=== PATIENT | female | born 1965 | race Caucasian/White ===

== ENCOUNTER 2017-07-07 12:48 | Day surgery (SDC) | payer BC ==
[~2017-07-07] VITALS: Ht 165.1 cm; Wt 72.1 kg
[2017-07-07] MEDS ORDERED: PROZAC20 MG PO (13:46)
[2017-07-07] MEDS ORDERED: SOMA350 MG PO (13:46)
[2017-07-07] MEDS ORDERED: FUROSEMIDE40 MG PO (13:47)
[2017-07-07] MEDS ORDERED: NITROQUICK0.4 MG SL (13:47)
[2017-07-07] MEDS ORDERED: NEURONTIN 300300 MG PO (13:47)
[2017-07-07] MEDS ORDERED: ULTRAM50 MG PO (13:48)
[2017-07-07] MEDS ORDERED: KLONOPIN0.5 MG PO (13:49)
[2017-07-07] MEDS ORDERED: PRINIVIL20 MG PO (13:49)
[2017-07-07] MEDS ORDERED: MOBIC7.5 MG PO (13:49)
[2017-07-07] MEDS ORDERED: PLAQUENIL200 MG PO (13:50)
[2017-07-07] MEDS ORDERED: COREG25 MG PO (13:51)
[2017-07-07 14:12] LABS: ANION GAP 13.5 mmol/L (8-16); CALCIUM 8.6 mg/dL (8.5-10.1); CARBON DIOXIDE 27.6 mmol/L (21.0-32.0); POTASSIUM - SERUM 4.1 mmol/L (3.5-5.1)
[2017-07-07 14:15] VITALS: Ht 165.1 cm; Wt 72.1 kg
[2017-07-07 14:36] LABS: BASOPHILS 0.5 % (0-2); HEMATOCRIT 35.8 % (36.0-48.0); HEMOGLOBIN 12.2 g/dL (12-16); IMMATURE GRANULOCYTES 0.2 % (0-5); LYMPHOCYTES 29.2 % (15-50); MCHC 34.1 g/dL (31.0-37.0); MEAN PLATELET VOLUME 10.5 fL (7.4-10.4); MONOCYTES 6.1 % (2-11); PLATELET COUNT 202 10x3/uL (130-400); RBC 3.81 10x6/uL (4.00-5.40); RDW 13.2 % (11.5-14.5); WBC 6.6 10x3/uL (4.8-10.8)
--- NOTE | 2017-07-07 18:17 | NUR ---
1815 BACK FROM CYSTOSCOPY STONE REMOVAL AND STENT PLACEMENT. ALERT AND TALKATIVE. SOME PAIN NOTED 5 HAD DILAUDID PRIOR TO ROOM, NO NAUSEA.
--- NOTE | 2017-07-07 19:05 | NUR ---
1820 UP WITH ASSISTANCE UNABLE TO URINATE. ENCOURAGED FLUIDS AND IV OPEN.
--- NOTE | 2017-07-07 19:23 | NUR ---
1914 V/S TAKEN RESP EVEN AND NONLABORED. PAIN LEVEL RT URETER A 4 BUT SOME GROGGY. ASKING TO GO HOME BUT HAS NOT URINATED. DR. BAKER STATED DID NOT HAVE TO URINATE BEFORE DISCHARGE. IV DCD CATHETER INTACT. SCRIPT GIVEN AND DISCHARGE INSTRUCTIONS GIVEN. TOLD PATIENT A STRING ATTACHED TO VAGINA AREA AND NOT TO PULL IT OT. TOLD TO CALL OFFICE MONDAY FOR A TOME ON MONDAY TO GET STENT REMOVED. TOLD HER NO BATHS SHOWER ONLY. SCRIPT FOR FLOMAX AND NORCO GIVEN TOLD HER SIDE EFFECT OF NORCO IS CONSTIPATION AND THE FLOMAX WILL HELP WITH URINATION. 1924 DISCHARGED TO HOME WITH AUNT.
--- NOTE | 2017-07-08 09:57 | OP ---
PATIENT NAME: KASEY ERAZO MEDICAL RECORD: [id number] :65 LOCATION:D.OPS ADMISSION DATE: SURGEON: LILLIANA BAKER MD DATE OF OPERATION: 07/07/2017 SURGEON: Lilliana Baker MD ANESTHESIA: General anesthesia by Venancio Lockwood CRNA PREOPERATIVE DIAGNOSIS: Right proximal ureteral stone, 4 mm, with hydronephrosis. PROCEDURES: Urethral stricture dilation to 26-Norwegian, cystoscopy, right ureteroscopy and stone extraction, and right ureteral stent insertion of 6-Norwegian x 24 cm with string attached. FINDINGS: Urethral stricture. On cystoscopy, single ureteral orifices bilaterally. No bladder tumors. Radiodense right proximal ureteral 4-mm stone. SPECIMENS: Right ureteral stone, 4 mm. BLOOD LOSS: None. CLINICAL HISTORY: This is a 52-year-old female with a prior history of kidney stones. She also has lower back pain. She has been complaining of right-sided back pain for sometime. She had an MRI of the spine which showed some lumbar disc herniation at L4-L5 and L5-S1 without nerve compression. The MRI also showed a right proximal ureteral 4-mm stone causing right-sided hydronephrosis. I saw her in the office today and we will be proceeding with removal of the stone by ureteroscopy. She also did complain of difficulty voiding with hesitancy and slow urinary flow. She is status post hysterectomy many years ago for cervical dysplasia. 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 DESCRIPTION OF PROCEDURE: The patient was given induction of general anesthesia. She was placed in the dorsal lithotomy position and prepped and draped. We could not get the 20-Norwegian cystoscope into the patient due to urethral stricture. Therefore, sounds were used starting from about 14-Norwegian and going up to 26-Norwegian to dilate the urethra. The scope was then able to enter freely. The patient had some relatively stenotic ureteral orifices. However, no bladder tumors were seen. On fluoroscopy, we could identify the stone as the radiodensity in the proximal ureter around the transverse process of L2. I managed to get an open-ended ureteral catheter into the right ureteral orifice. We then placed a Sensor wire and the Sensor wire ran up to the stone, but it could not get past the stone. I then ran the open-ended ureteral catheter up to the stone. We removed the wire and performed a retrograde pyelogram. The flow of contrast past the stone with the pyelogram and the pressure from the ureteral catheter managed to dislodge the stone back into the kidney. Hydronephrosis was seen, but no other filling defects were seen. The Sensor wire was placed back up to the renal pelvis through the ureteral catheter. The ureteral catheter was then removed, leaving the wire in place. Over the wire, we inserted a 21-Norwegian x 4-cm ureteral dilation balloon. The ureteral orifice on the right side was dilated using 16 atmospheres of pressure for few seconds and then the balloon was deflated. A rigid ureteroscope was used and I got all the way into the renal pelvis and did not see the stone. The OPERATIVE REPORT [id number] KASEY ERAZO J area in the proximal ureter where the stone had been lodged was identified by some edema there. No ureteral tumors were seen. The rigid ureteroscope was removed. I then inserted a ureteral access sheath over the guidewire. Once this was in correct position, the stylet of the ureteral access sheath as well as the guidewire was removed. A flexible ureteroscope was then placed into the kidney, and starting from the upper pole rena and looking down, I could finally identify the stone. A 0-tip 4 wire basket was placed around the stone. The stone was too large to pass through the lumen of the ureteral access sheath. Therefore, the Sensor wire was placed through the lumen of the access sheath back into the kidney. We kept the wire in place while the ureteral access sheath, stone in the basket, and the ureteroscope were all removed as a unit. The stone was then sent to pathology as a dry specimen for stone identification. With the ureteroscope and ureteral access sheath removed, the Sensor wire was backloaded onto the cystoscope. Over the wire through the cystoscope, we inserted a 6-Norwegian x 24-cm ureteral stent. Once the stent was in correct position, the wire was entirely removed. The proximal end was seen to coil in the renal pelvis. The distal end was pushed into the bladder using a pusher. The bladder was emptied through the cystoscope sheath and then the scope was removed entirely. The string on the distal end of the stent was maintained. It was taped to the suprapubic area with a small piece of Tegaderm. The patient will be going home today with a prescription for Williams 5/325 times 30 tablets and tamsulosin 0.4 mg p.o. at bedtime times 30 tablets. She will come to my office next week, on Monday, to have the stent removed. TRANSINT:[id number] Voice Confirmation ID: [id number] DOCUMENT ID: [id number] LILLIANA BAKER MD at 0957 CC: [id number] DICTATION DATE: 07/07/171734 GRAPHIC ART DESIGNER: 07/07/17 184 [facility] 07/07/17 [facility] [address] [place] [address]
[2017-07-21 10:18] LABS: CALCULI - CA OXALATE DIHYDRATE 20 % (()); CALCULI - CA OXALATE MONOHYDR 70 % (()); CALCULI - COLOR Brown (()); CALCULI - SIZE 6x5x3 mm (())
== END 2017-07-07 19:25 | disposition home or self-care (01) ==
LOC: D.OPS 12:48
PROVIDERS: Anesthesiology; Urology
DX: N13.2 Hydronephrosis with renal and ureteral calculous obstruction (principal); F17.200 Nicotine dependence, unspecified, uncomplicated; I10 Essential (primary) hypertension; Z01.812 Encounter for preprocedural laboratory examination

== ENCOUNTER 2018-12-18 08:00 | Outpatient (CLI) | payer BC ==
[2017-07-07 14:15] VITALS: BMI 26.5
[~2018-12-18 08:00] MED LIST: COREG25 MG PO; FUROSEMIDE40 MG PO; KLONOPIN0.5 MG PO; MOBIC7.5 MG PO; NEURONTIN 300300 MG PO; NITROQUICK0.4 MG SL; PLAQUENIL200 MG PO; PRINIVIL20 MG PO; PROZAC20 MG PO; SOMA350 MG PO; ULTRAM50 MG PO
[2018-12-18] MEDS ORDERED: PREDNISONE10 MG PO (11:35)
[2018-12-18] MEDS ORDERED: NORVASC10 MG PO (11:35)
[2018-12-18] MEDS ORDERED: ESTRACE1 MG PO (11:35)
[2018-12-18] MEDS ORDERED: VITAMIN D250000 UNIT PO (11:35)
[2018-12-18 12:31] LABS: HEMATOCRIT 42.7 % (36.0-48.0); HEMOGLOBIN 15.1 g/dL (12-16); MCH 32.4 pg (26.0-34.0); MCHC 35.4 g/dL (31.0-37.0); MCV 91.6 fL (80.0-100.0); MEAN PLATELET VOLUME 11.2 fL (7.4-10.4); RBC 4.66 10x6/uL (4.00-5.40); RDW 13.7 % (11.5-14.5); WBC 11.9 10x3/uL (4.8-10.8)
== END 2018-12-18 08:01 | disposition home or self-care (01) ==
LOC: D.OPS 08:00 → D.PAN 12-20 07:30 → EDSTATUS 12-20 07:30 → D.OPS 12-20 07:30
PROVIDERS: Anesthesiology; ATTEND Urology
DX: N39.3 Stress incontinence (female) (male) (principal)